=== PATIENT | male | born 1940 | race Caucasian/White ===

== ENCOUNTER 2019-07-20 20:38 | Inpatient (IN) | payer MEDICARE, OTHER ==
[~2019-07-20] VITALS: Ht 167.6 cm; Wt 83.5 kg
--- NOTE | 2019-07-20 20:50 | NUR ---
YONIS 82 FOR C/O FEVER, CHILLS, SOB X1 DAY, pt aaox4, nad noted, pt on montior, vss, pending md rasmussen
[2019-07-20] MEDS ORDERED: IV NS 0.9% 500 ML BAG IV ONE (21:00)
[2019-07-20] MEDS ORDERED: ACETAMINOPHEN ES 500 MG TABLET PO ONE (21:00)
[2019-07-20 21:03] LABS: BASOPHILS # (AUTO) 0.1 /CMM (0.0-0.2); BASOPHILS % (AUTO) 0.5 % (0.0-2.0); EOSINOPHILS % (AUTO) 0.7 % (0.0-6.0); HEMATOCRIT 42 % (39-51); LYMPHOCYTES # (AUTO) 6.5 /CMM (0.8-4.8); LYMPHOCYTES % (AUTO) 47.8 % (20.0-44.0); MEAN CORPUSCULAR HGB CONC 33 g/dl (31.0-36.0); MEAN CORPUSCULAR VOLUME 86 fL (80-96); MONOCYTES # (AUTO) 0.3 /CMM (0.1-1.30); NEUTROPHILS # (AUTO) 6.7 /CMM (1.8-8.9); PLATELET COUNT (AUTO) 118 /CMM (150-450); WHITE BLOOD COUNT (AUTO) 13.7 K/uL (4.3-11.0)
[2019-07-20] MEDS ORDERED: ACETAMINOPHEN ES 500 MG TABLET ONE (21:11)
[2019-07-20 21:28] LABS: ALANINE AMINOTRANSFERASE 20 U/L (12-78); ALBUMIN 3.3 g/dL (3.4-5.0); ALKALINE PHOSPHATASE 81 U/L (46-116); ASPARTATE AMINOTRANSFERASE 17 U/L (15-37); B-TYPE NATRIURETIC PEPTIDE 1230 PG/ML (0-125); BILIRUBIN,DIRECT 0.1 mg/dL (0.0-0.2); BILIRUBIN,TOTAL 0.7 mg/dL (0.2-1.0); CALCIUM, SERUM 8.5 mg/dL (8.5-10.1); CARBON DIOXIDE 26 mmol/L (21-32); CHLORIDE 100 mmol/L (98-107); CREATININE 1.6 mg/dL (0.6-1.3); GLUCOSE 150 mg/dL (74-106); POTASSIUM 4.4 mmol/L (3.5-5.1); SODIUM SERUM 135 mmol/L (136-145); TOTAL PROTEIN, SERUM 6.7 g/dL (6.4-8.2); UREA NITROGEN, BLOOD 23 mg/dL (7-18)
[2019-07-20] MEDS ORDERED: AZITHROMYCIN 500 MG in IV D5W 250 ML IV ONE (22:00)
[2019-07-20] MEDS ORDERED: CEFTRIAXONE 1GM BAG (ER ONLY) 50 ML IV ONE ×2 (22:00→22:18)
--- NOTE | 2019-07-20 22:04 | NUR ---
BED ASSIGNMENT 316-2
[2019-07-20] MEDS ORDERED: ASPI-1169 PO (22:12)
[2019-07-20] MEDS ORDERED: ATOR20TA PO (22:12)
[2019-07-20] MEDS ORDERED: OLME20TA13 PO (22:12)
[2019-07-20] MEDS ORDERED: HYDR25TA4 PO (22:12)
[2019-07-20] MEDS ORDERED: FEBU40TA3 PO (22:12)
[2019-07-20] MEDS ORDERED: AMLO10TA7 PO (22:12)
[2019-07-20] MEDS ORDERED: TAMS-12 PO (22:12)
[2019-07-20] MEDS ORDERED: CITA10TA9 PO (22:12)
--- NOTE | 2019-07-20 22:15 | NUR ---
report given to jagdish davison for cathleen pt will be transported to 3rd floor
[2019-07-20] MEDS ORDERED: AZITHROMYCIN 500 MG VIAL ONE (22:22)
[2019-07-20 22:45] VITALS: BP 112/53
--- NOTE | 2019-07-20 22:52 | NUR ---
pt transported to 3rd floor
--- NOTE | 2019-07-20 23:00 | NUR ---
RETAIL SUPPORT ASSOCIATEVP & GENERAL COUNSEL NOTES RECEIVED PATIENT FROM ER VIA [facility], ACCOMPANIED BY ER STAFFS AND DAUGHTER. ALERT AND ORIENTED X 4, BELGIAN SPEAKING. AMBULATORY, VERBALLY RESPONSIVE AND ABLE TO FOLLOW DIRECTIONS. BREATHING REGULAR AND UNLABORED ON OXYGEN AT 2L/MIN VIA NASAL CANNULA. LEFT AC G20 IV LINE INTACT AND PATENT INFUSING WELL WITH NO BLEEDING OR S/S OF INFILTRATION SEEN. ON-GOING IV ATB INFUSING WELL. VITAL SIGNS TAKEN. BODY ASSESSMENT DONE, SEEN WITH RIGHT EYE REDNESS WITH S/S OF POSSIBLE EYE INFECTION AND RIGHT INDEX FINGER AMPUTATION. PHOTOS TAKEN, KEPT IN CHART. ATTACHED TO DATA CENTER PROJECT MANAGER WITH INITIAL RHYTHM OF NSR with PAC's AT 97bpm. BELONGINGS CHECKED AND ACCOUNTED BY DAUGHTER ON BEDSIDE. NO COMPLAINTS OF PAIN/DISCOMFORT REPORTED OF THE TIME. BED LOW AND LOCKED ON SEMI FOWLERS POSITION. CALL LIGHT IN REACH. WILL CONTINUE TO MONITOR.
[2019-07-20 23:20] LABS: APPEARANCE,URINE Clear (CLEAR); BILIRUBIN,URINE Negative (NEGATIVE); BLOOD, URINE Small Ery/uL (NEGATIVE); COLOR,URINE Yellow (YELLOW); KETONES,URINE Negative (NEGATIVE); LEUKOCYTE ESTERASE ,URINE Negative (NEGATIVE); NITRITE, URINE Negative (NEGATIVE); PH,URINE 5.5 (5.0-8.0); PROTEIN,URINE >=300 mg/dl (NEGATIVE); UGLUCOSE Negative (NEGATIVE)
[2019-07-20] MEDS ORDERED: ONDANSETRON HCL/PF 4 MG/2 ML VIAL IVP PRN (23:30)
[2019-07-20] MEDS ORDERED: HYDROCODONE/APAP 5/325MG 1 EACH TABLET PO PRN (23:30)
[2019-07-20] MEDS ORDERED: Z GUARD REMEDY 2 OZ OINT TP PRN (23:30)
[2019-07-20] MEDS ORDERED: ZOLPIDEM TARTRATE 5 MG TABLET PO PRN (23:30)
[2019-07-20] MEDS ORDERED: MAG HYDROX/AL HYDROX/SIMETH 30 ML UDC PO PRN (23:30)
[2019-07-20] MEDS ORDERED: MAGNESIUM HYDROXIDE 30 ML UDC PO PRN (23:30)
[2019-07-21 00:14] LABS: BACTERIA,URINE Few /HPF (None Seen); SQUAMOUS EPITHELIAL CELL,UR Rare /HPF (None Seen)
--- NOTE | 2019-07-21 00:30 | NUR ---
BACKUP ADMINISTRATIVE COORDINATOR NOTES PHARMACY CALLED TO CONFIRM PATIENTS LIST OF ALLERGIES INCLUDING MORPHINE, VERSED AND FENTANYL. PER DAUGHTER THE LAST TIME THE PATIENT HAD A MORPHINE HE HAD A REACTION WITH NECK SWELLING AND DIFFICULTY BREATHING. ALSO THE DAUGHTER SAID THE PATIENT DOESN'T OFTEN COMPLAINTS OF PAIN. WILL CONTINUE TO MONITOR.
--- NOTE | 2019-07-21 01:00 | NUR ---
DELI COOK NOTES ALSO SEEN WITH LEFT LEG SCRATCH HDEZ, PER THE PATIENT HE'S THE ONE WHO SCRATCHED IT. PHOTO TAKEN, ATTACHED TO CHART.
[2019-07-21 04:03] VITALS: BP 117/59
--- NOTE | 2019-07-21 05:45 | NUR ---
PRESERVATIONIST NOTES PATIENT NOTED WITH SOB, GASPING FOR AIR. SPO2 AT 88% HR 140-150'S; DIAPHORETIC WITH CRACKLES ON BOTH LUNG [place] WITH PRODUCTIVE COUGH. HOB ELEVATED, CHANGE NASAL CANNULA TO FACE MASK AT 6L/min. SURFBOARD DESIGNER DIANE MADE AWARE WITH ORDERS FOR BREATHING TREATMENTS. RT ON BEDSIDE ASSESSED PATIENT AND GAVE BREATHING TREATMENT. WILL CONTINUE TO MONITOR.
[2019-07-21] MEDS: IPRATROPIUM NEB FS 0.5 MG/2.5 ML AMPUL.NEB NEB PRN ×2 (06:15→22:24)
[2019-07-21] MEDS: ALBUTEROL FS 2.5 MG/3 ML VIAL.NEB NEB PRN ×2 (06:15→22:24)
--- NOTE | 2019-07-21 06:17 | NUR ---
RT NOTE Pt rec'd on simple mask on 8lpm. Pt tachypneic, diaphoretic, tachycardic, and blood pressure hypertensive. skin color pink. bilateral crackles heard on auscultation. ACUTE CARE SURGEON darren notified of pt's status. Will continue to monitor closely. Addendum: 07/21/19 at 0623 by DEIDRE FARMER RT Amended: Links added.
--- NOTE | 2019-07-21 06:20 | NUR ---
AUTO BODY SERVICE MECHANIC NOTES SLP TEACHER DIANE ORDERED LASIX 40MG, GIVEN IV PUSH. LATEST BP 192/110 HR 152bpm WITH TACHYPNEA. VOIDED TWICE AFTER LASIX ADMINISTRATION. WILL CONTINUE TO MONITOR.
[2019-07-21 06:21] LABS: BASOPHILS % (AUTO) 0.2 % (0.0-2.0); EOSINOPHILS % (AUTO) 0.3 % (0.0-6.0); HEMATOCRIT 42 % (39-51); HEMOGLOBIN 13.7 g/dL (13.5-17.5); LYMPHOCYTES # (AUTO) 7.1 /CMM (0.8-4.8); LYMPHOCYTES % (AUTO) 54.5 % (20.0-44.0); MEAN CORPUSCULAR HGB CONC 33 g/dl (31.0-36.0); MEAN CORPUSCULAR VOLUME 88 fL (80-96); MONOCYTES # (AUTO) 0.4 /CMM (0.1-1.30); MONOCYTES % (AUTO) 2.7 % (2.0-12.0); NEUTROPHILS # (AUTO) 5.5 /CMM (1.8-8.9); NEUTROPHILS % (AUTO) 42.3 % (43.0-81.0); PLATELET COUNT (AUTO) 114 /CMM (150-450); RED BLOOD CELL COUNT(AUTO) 4.76 MIL/uL (4.5-6.0)
[2019-07-21] MEDS ORDERED: FUROSEMIDE 40 MG/4 ML VIAL IV SCH (06:30)
[2019-07-21 06:39] LABS: ALANINE AMINOTRANSFERASE 14 U/L (12-78); ALBUMIN 3.3 g/dL (3.4-5.0); ALKALINE PHOSPHATASE 79 U/L (46-116); ASPARTATE AMINOTRANSFERASE 14 U/L (15-37); BILIRUBIN,TOTAL 0.7 mg/dL (0.2-1.0); CALCIUM, SERUM 8.4 mg/dL (8.5-10.1); CARBON DIOXIDE 25 mmol/L (21-32); CHLORIDE 102 mmol/L (98-107); CREATININE 1.6 mg/dL (0.6-1.3); GLUCOSE 111 mg/dL (74-106); PHOSPHORUS 3.9 mg/dL (2.5-4.9); POTASSIUM 4.4 mmol/L (3.5-5.1); SODIUM SERUM 136 mmol/L (136-145); TOTAL PROTEIN, SERUM 6.7 g/dL (6.4-8.2); UREA NITROGEN, BLOOD 28 mg/dL (7-18)
[2019-07-21 06:41] LABS: CHOLESTEROL 172 mg/dL (<200); HDL CHOLESTEROL 29 mg/dL (40-60); LDL 127 mg/dL (0-99); THYROID STIMULATING HORMONE 0.991 uIU/mL (0.358-3.74); TRIGLYCERIDES 100 mg/dL (30-150)
[2019-07-21] MEDS: ACETAMINOPHEN 325 MG TABLET PO PRN ×2 (06:50→18:01)
--- NOTE | 2019-07-21 06:50 | NUR ---
CROP OR GRAIN FARMWORKER NOTES PATIENT NOTED WITH BODY TEMPERATURE OF 100.2 WARM TO TOUCH AND DIAPHORETIC. TYLENOL 650MG GIVEN BY MOUTH WITH SIPS OF WATER. COOLING MEASURES PROVIDED. WILL CONTINUE TO MONITOR.
--- NOTE | 2019-07-21 07:00 | NUR ---
CUTTER ALUMINUM SHEET CLOSING NOTES PATIENT IN BED ALERT AND ORIENTED X 2 WITH EPISODE OF CONFUSION. STILL NOTED WITH SHORTNESS OF BREATH WITH OXYGEN AT 6L/min VIA FACE MASK. COOLING MEASURES PROVIDED. MAINTAINED ON CARDIAC MONITORING WITH SINUS TACHYCARDIA WITH PAC's/PVC'S AT 128bpm. LATEST BP 159/66 SPO2 96%. BED LOW AND LOCKED ON HIGH FOWLERS POSITION. FAMILY ON BEDSIDE. WILL ENDORSE TO MORNING SHIFT FOR BETTY.
--- NOTE | 2019-07-21 07:55 | NUR ---
MS RN RECEIVED ON BED, AWAKE, ALERT,ORIENTED X4,NOT IN ANY FORM OD DISTRESS, RESPIRATIONS EVEN AND UNLABORED,NO SOB NOTED,ALL NEEDS ATTENDED.
[2019-07-21 08:00] VITALS: BP_SYST 83; BP_SYST 90; BP_DIAS 45
[2019-07-21 08:08] LABS: LYMPHOCYTES % (MANUAL) 52 % (16-48); MONOCYTES % (MANUAL) 3 % (0-11.0); NEUTROPHILS % (MANUAL) 45 (42-76)
[2019-07-21] MEDS: HYDROCHLOROTHIAZIDE 25 MG TABLET PO SCH (09:00)
[2019-07-21] MEDS: AMLODIPINE BESYLATE 10 MG TABLET PO SCH (09:00)
[2019-07-21] MEDS: CITALOPRAM HYDROBROMIDE 10 MG TABLET PO SCH (09:00)
[2019-07-21] MEDS ORDERED: TAMSULOSIN 0.4 MG CAP.SR.24H PO SCH (09:00)
--- NOTE | 2019-07-21 09:00 | NUR ---
ms rn breakfast served,patient's daughter refused some meds due to condition.
[2019-07-21] MEDS: ASPIRIN 81 MG TAB.CHEW PO SCH (09:33)
[2019-07-21] MEDS: LOSARTAN POTASSIUM 50 MG TABLET PO SCH (11:00)
--- NOTE | 2019-07-21 11:00 | NUR ---
ms rn was seen by isa gary/ orders made and carried out.
--- NOTE | 2019-07-21 12:00 | NUR ---
ms rn daughter at bedside, will monitor patient's condition.
--- NOTE | 2019-07-21 15:00 | NUR ---
ms rn us kidney taken w/ result,all needs attended.
[2019-07-21 16:00] VITALS: BP 118/50
[2019-07-21] MEDS ORDERED: FEBUXOSTAT 40 MG TABLET PO SCH (17:00)
--- NOTE | 2019-07-21 17:10 | NUR ---
ms rn on bed,no distress noted,all needs attended.
--- NOTE | 2019-07-21 19:45 | NUR ---
ms mehnaz initial notes seen pt in bed awake and alert with his at the bedside. denies any pain or any discomfort but per he look like he's a fever because he's so cold. temp checked and came out 98.3 F. aisha oral .open the heater as well to keep the room warm but i told to the when its already too hot we need to adjust the temp of his room and pt understood well. kept him comfortable at all times. will continue monitoring. place call light at reach.
[2019-07-21 20:00] VITALS: BP 124/60
[2019-07-21] MEDS: TAMSULOSIN 0.4 MG CAP.SR.24H PO SCH ×2 (21:00→22:00)
[2019-07-21] MEDS: ATORVASTATIN 10 MG TABLET PO SCH (22:00)
--- NOTE | 2019-07-21 22:00 | NUR ---
ms mehnaz notes pt is awake and alert, daughter at the bedside and refusing to give pt routine med for tonight even educate her what's the purpose of each medication , She told me "the only medication that she like it to give to his dad is only Tylenol, aspirin and his IV antibiotic and his blood pressure medication because they're concerned right now is his fever that is on and off or else his dad is ok' ". I told her I will endorse to am nurse to let his MD know regarding their concern. Shyla Phillips/ [facility] aware. Got also cough one time medication from her per pt requested. will continue monitoring.
[2019-07-21] MEDS: CEFTRIAXONE 1 G in IV D5W 50 ML IV SCH (22:15)
[2019-07-21] MEDS ORDERED: GUAIFENESIN/D-METHORPHAN HB 5 ML UDC PO ONE (23:00)
[2019-07-21] MEDS: AZITHROMYCIN 500 MG in IV D5W 250 ML IV SCH (23:27)
--- NOTE | 2019-07-22 02:05 | NUR ---
ms heel brusher notes checked pt sleeping comfortably in bed without any acute distress noted. kept him comfortable at all times. daughter at the bedside sleeping as well.
--- NOTE | 2019-07-22 04:57 | NUR ---
ms mehnaz notes pt woke up started coughing and complaining of mild pain on his back. Jihan DM given as ordered, tylenol as well for his pain. kept him warm and comfortable at all times. will continue monitoring.
[2019-07-22] MEDS ORDERED: BENZONATATE 100 MG CAPSULE PO PRN (05:00)
[2019-07-22] MEDS ORDERED: GUAIFENESIN/D-METHORPHAN HB 5 ML UDC PO PRN (05:00)
[2019-07-22] MEDS: ACETAMINOPHEN 325 MG TABLET PO PRN ×2 (05:03→10:03)
--- NOTE | 2019-07-22 06:59 | NUR ---
MS AIR COMPRESSOR MECHANIC CLOSING NOTES PT BACK TO SLEEP AFTER TYLENOL GIVEN. BREATHING EVEN AND UN-LABORED, NOT IN ANY ACUTE DISTRESS NOTED. ALL DUE MEDS GIVEN AND ALL NEEDS MET. KEPT HIM WARM AND COMFORTABLE AT ALL TIMES. DAUGHTER REMAIN AT THE BEDSIDE. ENDORSE TO AM NURSE FOR CONTINUITY OF CARE.
--- NOTE | 2019-07-22 07:55 | NUR ---
MS RN RECEIVED ON BED, AWAKE,ALERT,ORIENTED X4,NOT IN ANY FORM OF DITRESS, REPIRATIONS EVEN AND UNLABORED,NO SOB NOTED, LUNGS ARE CLEAR, ABDOMEN SOFT,POSITIVE BOWEL SOUNDS, DENIES PAIN AT THIS TIME, WILL MONITOR PATIENT'S CONDITION.
[2019-07-22 07:57] LABS: BASOPHILS # (AUTO) 0.2 /CMM (0.0-0.2); BASOPHILS % (AUTO) 1.7 % (0.0-2.0); EOSINOPHILS % (AUTO) 0.6 % (0.0-6.0); HEMATOCRIT 41 % (39-51); HEMOGLOBIN 13.8 g/dL (13.5-17.5); LYMPHOCYTES # (AUTO) 5.5 /CMM (0.8-4.8); LYMPHOCYTES % (AUTO) 53.9 % (20.0-44.0); MEAN CORPUSCULAR HGB CONC 34 g/dl (31.0-36.0); MEAN CORPUSCULAR VOLUME 88 fL (80-96); MONOCYTES # (AUTO) 0.2 /CMM (0.1-1.30); MONOCYTES % (AUTO) 2.4 % (2.0-12.0); NEUTROPHILS # (AUTO) 4.2 /CMM (1.8-8.9); NEUTROPHILS % (AUTO) 41.4 % (43.0-81.0); PLATELET COUNT (AUTO) 109 /CMM (150-450); RED BLOOD CELL COUNT(AUTO) 4.67 MIL/uL (4.5-6.0); WHITE BLOOD COUNT (AUTO) 10.2 K/uL (4.3-11.0)
[2019-07-22 08:00] VITALS: BP 121/60
[2019-07-22 08:00] LABS: CALCIUM, SERUM 8.5 mg/dL (8.5-10.1); CARBON DIOXIDE 27 mmol/L (21-32); CHLORIDE 104 mmol/L (98-107); GLUCOSE 123 mg/dL (74-106); POTASSIUM 4.6 mmol/L (3.5-5.1); SODIUM SERUM 140 mmol/L (136-145); UREA NITROGEN, BLOOD 35 mg/dL (7-18)
[2019-07-22] MEDS: CITALOPRAM HYDROBROMIDE 10 MG TABLET PO SCH (09:00)
[2019-07-22] MEDS: HYDROCHLOROTHIAZIDE 25 MG TABLET PO SCH (09:00)
[2019-07-22] MEDS: LOSARTAN POTASSIUM 50 MG TABLET PO SCH (09:00)
[2019-07-22] MEDS: AMLODIPINE BESYLATE 10 MG TABLET PO SCH ×2 (09:00→17:34)
--- NOTE | 2019-07-22 09:20 | NUR ---
MS RN BREAKFAST SERVED,DUE MEDS GIVEN,TOLERATED WELL. REFUSED SOME OF MEDS TODAY.
[2019-07-22] MEDS: ASPIRIN 81 MG TAB.CHEW PO SCH (10:03)
--- NOTE | 2019-07-22 11:00 | NUR ---
MS RN WAS SEEN BY DR. MARIAM Vital/ ORDERS MADE AND CARRIED OUT.
--- NOTE | 2019-07-22 12:30 | NUR ---
MS RN WAS SEEN BY SKYLER MO,ALL NEEDS ATTENDED.
[2019-07-22 16:00] VITALS: BP 148/72
--- NOTE | 2019-07-22 19:15 | NUR ---
MS RN OPENING NOTES Received patient A/O x4, awake on bed. On RA, no SOB/respiratory distress noted. Patient denies discomfort at this time. Kept on bed clean, dry and comfortable. On fall and aspiration precautions. Call light within easy reach. Will continue to monitor accordingly.
[2019-07-22 20:00] VITALS: BP 148/75
[2019-07-22] MEDS: ATORVASTATIN 10 MG TABLET PO SCH (22:00)
[2019-07-22] MEDS: TAMSULOSIN 0.4 MG CAP.SR.24H PO SCH (22:00)
[2019-07-22] MEDS: CEFTRIAXONE 1 G in IV D5W 50 ML IV SCH (22:08)
[2019-07-22] MEDS: AZITHROMYCIN 500 MG in IV D5W 250 ML IV SCH (23:01)
--- NOTE | 2019-07-23 06:45 | NUR ---
MS RN CLOSING NOTES Patient asleep, easily awaken on bed. On O2 inhalation PRN to keep SpO2 >92%. Patient denies any discomfort at this time. All nursing needs attended. Due meds given as ordered. No new complaints made. Kept on bed clean, dry and comfortable. Call light within easy reach. On fall and aspiration precautions. Endorsed to the next shift.
--- NOTE | 2019-07-23 07:10 | NUR ---
RN OPENING NOTES RECEIVED PATIENT IN BED RESTING. A/OX4, KHMER SPEAKING. NOT IN ANY FORM OF DISTRESS. NO SOB, ON ROOM AIR, RESPIRATIONS EVEN AND UNLABORED. DENIES PAIN OR DISCOMFORT AT THIS TIME. IV ACCESS INTACT AND PATENT. KEPT PATIENT SAFE AND COMFORTABLE. BED IN LOW/LOCKED POSITION. SIDERAILS UPX2, CALL LIGHT IN REACH. WILL CONTINUE TO MONITOR ACCORDINGLY.
[2019-07-23 07:12] LABS: BASOPHILS % (AUTO) 0.3 % (0.0-2.0); HEMATOCRIT 42 % (39-51); LYMPHOCYTES # (AUTO) 7.6 /CMM (0.8-4.8); LYMPHOCYTES % (AUTO) 69.4 % (20.0-44.0); MEAN CORPUSCULAR HGB CONC 33 g/dl (31.0-36.0); MEAN CORPUSCULAR VOLUME 88 fL (80-96); MONOCYTES # (AUTO) 0.4 /CMM (0.1-1.30); MONOCYTES % (AUTO) 4.1 % (2.0-12.0); NEUTROPHILS # (AUTO) 2.8 /CMM (1.8-8.9); NEUTROPHILS % (AUTO) 25.2 % (43.0-81.0); PLATELET COUNT (AUTO) 119 /CMM (150-450)
[2019-07-23 08:00] VITALS: BP 137/93
[2019-07-23 08:08] LABS: CALCIUM, SERUM 8.5 mg/dL (8.5-10.1); CARBON DIOXIDE 24 mmol/L (21-32); CHLORIDE 103 mmol/L (98-107); CREATININE 1.4 mg/dL (0.6-1.3); GLUCOSE 99 mg/dL (74-106); POTASSIUM 4.6 mmol/L (3.5-5.1); SODIUM SERUM 138 mmol/L (136-145); UREA NITROGEN, BLOOD 29 mg/dL (7-18)
[2019-07-23 09:00] VITALS: BP 137/63
[2019-07-23] MEDS: CITALOPRAM HYDROBROMIDE 10 MG TABLET PO SCH (09:00)
[2019-07-23] MEDS: AMLODIPINE BESYLATE 10 MG TABLET PO SCH (09:00)
[2019-07-23] MEDS: ASPIRIN 81 MG TAB.CHEW PO SCH (09:00)
--- NOTE | 2019-07-23 16:21 | NUR ---
discharged patient in stable condition picked up by daughter, accompanied by mesfin berman, at the [facility]. discharge instructions given, Kathleen RN helped in Angolan translation. patient verbalized understanding of discharged instructions. DC paperwork handed to patient. all belongings returned, form signed. No iv access noted, asked patient what happened to his iv access and he said that he pulled it out by himself earlier, Checked iv site and no complications noted. Removed name band. skin photo taken and placed it in the chart.
== END 2019-07-23 16:30 | disposition home health service (06) | DRG 871 ==
LOC: EDBD 20:43 → ER 20:43 → TELE 22:15 → MED 07-21 09:16
PROVIDERS: ADMIT Hospitalist; ATTEND Nurse Practitioner Acute Care
DX: A41.9 Sepsis, unspecified organism (principal); J18.9 Pneumonia, unspecified organism; N17.0 Acute kidney failure with tubular necrosis; E44.1 Mild protein-calorie malnutrition; G93.40 Encephalopathy, unspecified; E87.1 Hypo-osmolality and hyponatremia; C95.10 Chronic leukemia of unspecified cell type not having achieved remission; D69.6 Thrombocytopenia, unspecified; I25.10 Atherosclerotic heart disease of native coronary artery without angina pectoris; Z98.890 Other specified postprocedural states; Z95.5 Presence of coronary angioplasty implant and graft; Z98.2 Presence of cerebrospinal fluid drainage device; Z86.73 Personal history of transient ischemic attack (TIA), and cerebral infarction without residual deficits; N40.0 Benign prostatic hyperplasia without lower urinary tract symptoms; Z79.82 Long term (current) use of aspirin; Z79.899 Other long term (current) drug therapy; J44.9 Chronic obstructive pulmonary disease, unspecified; I12.9 Hypertensive chronic kidney disease with stage 1 through stage 4 chronic kidney disease, or unspecified chronic kidney disease; N18.9 Chronic kidney disease, unspecified
CPT/HCPCS: 36415; 71045-TC; 76770-TC; 80048-TC; 80053-TC; 80061-TC; 80076-TC; 81000-TC; 83605-TC; 83735-TC; 83880; 84100-TC; 84443-TC; 84484-TC; 85025-TC; 85730-TC; 87040-TC; 87081-TC; 87086-TC; 94760-TC; 97116-TC; 97530-TC; G0378; J0456; J0696; J1940; J7040; J7050; J7060